=== PATIENT | female | born 1995 | race Two or more races ===

== ENCOUNTER 2019-10-09 20:24 | Inpatient (IN) | payer MEDICAID ==
[~2019-10-09] VITALS: Ht 152.4 cm; Wt 78.7 kg
[2019-10-10] MEDS ORDERED: FAMOTIDINE 20MG/2ML VIAL IV STA (00:09)
[2019-10-10] MEDS ORDERED: MAGNESIUM/ALUMINUM HYDROXIDE/SIMETHICONE 30ML UDC PO STA (00:09)
[2019-10-10] MEDS ORDERED: SODIUM CHLORIDE 0.9% 1,000 ML IV ONE ×2 (00:09)
[2019-10-10] MEDS ORDERED: MORPHINE SULFATE 4 MG/ML CPJ (NOT FOR IM USE) IV STA (00:09)
[2019-10-10] MEDS ORDERED: ONDANSETRON HCL 4MG/2ML INJ IV STA (00:09)
[2019-10-10 00:43] LABS: BG BASE EXCESS -4.7 mmol/L (-2.0-2.0); BG CARBOXYHEMOGLOBIN 0.4 % (0.5-1.5); BG DEOXYHEMOGLOBIN 1.9 % (0.0-5.0); BG FRACTION INSPIRED OXYGEN 21; BG HCO3 ACT 16.1 mmol/L (22.0-26.0); BG METHEMOGLOBIN 0.1 % (0.0-1.5); BG OXYGEN SATURATION 98.1 % (92.0-98.5); BG OXYHEMOGLOBIN 97.6 % (94.0-97.0); BG PCO2 21.4 mmHg (35.0-45.0); BG PH 7.494 (7.350-7.450); BG PO2 101.8 mmHg (75.0-100.0); BG SAMPLE SITE RIGHT RADIAL; BG VENT MODE ROOM AIR
[2019-10-10 00:51] LABS: CLARITY URINE TURBID (CLEAR); COLOR URINE RED (YELLOW); KETONES URINE 4+ (NEGATIVE); LEUKOCYTE ESTERASE URINE 1+ (NEGATIVE); NITRITE URINE NEGATIVE (NEGATIVE); OCCULT BLOOD URINE 3+ (NEGATIVE); PROTEIN URINE 2+ (NEGATIVE); SPECIFIC GRAVITY URINE 1.047 (1.005-1.030); UROBILINOGEN URINE 0.2 E.U./dL (0.2-1.0)
[2019-10-10 00:52] LABS: HEMATOCRIT. 43.5 % (36.0-48.0); MEAN CORPUSCULAR HEMOGLOBIN 31.8 pg (28.0-32.0); MEAN CORPUSCULAR VOLUME 91.9 fL (81.0-99.0); MEAN PLATELET VOLUME 8.4 fl (7.4-10.4); PLATELET 283 x1000/uL (130-400); RED BLOOD CELL COUNT 4.73 mill/uL (4.2-5.4); RED CELL DISTRIBUTION WIDTH 12.7 % (11.6-14.6)
[2019-10-10 00:59] LABS: CHLORIDE 98 mEq/L (98-107)
[2019-10-10 01:07] LABS: BETA HYDROXYBUTYRATE 3.2 mMol/L (0.0-0.3)
[2019-10-10 01:49] LABS: PLATELET ESTIMATE NORMAL
[2019-10-10] MEDS ORDERED: METOCLOPRAMIDE HCL 10MG/2ML VIAL IV ONE ×2 (03:30→09:30)
[2019-10-10] MEDS ORDERED: MORPHINE SULFATE 4 MG/ML CPJ (NOT FOR IM USE) IV ONE (07:00)
[2019-10-10] MEDS ORDERED: ONDANSETRON HCL 4MG/2ML INJ IV ONE (07:00)
[2019-10-10] MEDS ORDERED: INSULIN LISPRO 100 UNITS/ML SUBCUT ONE (08:25)
[2019-10-10] MEDS ORDERED: DEXTROSE 50% WATER 50ML SYRINGE IV PRN (10:00)
[2019-10-10] MEDS ORDERED: CEFTRIAXONE 1 G PREMIX 50 ML IV SCH (11:00)
[2019-10-10] MEDS: METOCLOPRAMIDE HCL 10MG/2ML VIAL IV SCH ×3 (12:20→12:30)
[2019-10-10] MEDS: BLOOD SUGAR DIAGNOSTIC STRIP TEST SCH ×3 (12:33→21:00)
[2019-10-10] MEDS: INSULIN LISPRO 100 UNITS/ML SUBCUT SCH ×3 (12:35→23:01)
[2019-10-10 12:53] LABS: *BARBITURATES SCREEN URINE NEGATIVE (NEGATIVE); *BENZODIAZEPINES SCREEN URINE NEGATIVE (NEGATIVE); *COCAINE SCREEN URINE NEGATIVE (NEGATIVE); METHADONE URINE SCREEN NEGATIVE (NEGATIVE)
[2019-10-10 13:05] LABS: CANNABINOID URINE SCREEN PRESUMTIVE POSITIVE (NEGATIVE); OPIATES URINE SCREEN PRESUMTIVE POSITIVE (NEGATIVE)
[2019-10-10] MEDS: ONDANSETRON HCL 4MG/2ML INJ IV PRN ×2 (13:06→22:59)
[2019-10-10 13:13] LABS: *AMPHETAMINES SCREEN URINE NEGATIVE (NEGATIVE); PHENCYCLIDINE URINE SCREEN NEGATIVE (NEGATIVE)
[2019-10-10] MEDS ORDERED: MORPHINE SULFATE 2 MG/ML CPJ (NOT FOR IM USE) IV NR (14:30)
[2019-10-10] MEDS: PANTOPRAZOLE SODIUM 40 MG/VIAL IV SCH (14:34)
[2019-10-10] MEDS: MAGNESIUM/ALUMINUM HYDROXIDE/SIMETHICONE 30ML UDC PO PRN (15:29)
[2019-10-10] MEDS ORDERED: MORPHINE SULFATE 2 MG/ML CPJ (NOT FOR IM USE) IV ONE (16:45)
[2019-10-10 22:30] VITALS: BP 117/81
[2019-10-10] MEDS: ACETAMINOPHEN 325MG TABLET PO PRN (22:54)
[2019-10-10] MEDS: MORPHINE SULFATE 2 MG/ML CPJ (NOT FOR IM USE) IV PRN (23:52)
[2019-10-11] VITALS: BP 124/87
[2019-10-11] MEDS ORDERED: INSU100I28 SQ (00:14)
[2019-10-11] MEDS ORDERED: METF500S7 PO (00:14)
[2019-10-11] MEDS ORDERED: PROT20 PO (00:14)
[2019-10-11] MEDS: ZOLPIDEM TARTRATE 5MG TABLET PO PRN ×2 (01:29→21:06)
[2019-10-11 04:00] VITALS: BP 123/79
[2019-10-11] MEDS: MORPHINE SULFATE 2 MG/ML CPJ (NOT FOR IM USE) IV PRN (05:08)
[2019-10-11] MEDS: METOCLOPRAMIDE HCL 10MG/2ML VIAL IV SCH ×4 (05:08→23:33)
[2019-10-11] MEDS: INSULIN LISPRO 100 UNITS/ML SUBCUT SCH ×4 (06:30→20:10)
[2019-10-11] MEDS: BLOOD SUGAR DIAGNOSTIC STRIP TEST SCH ×4 (06:30→20:24)
[2019-10-11 08:00] VITALS: BP 144/98
[2019-10-11] MEDS: PANTOPRAZOLE SODIUM 40 MG/VIAL IV SCH (08:04)
[2019-10-11 08:18] LABS: BASOPHILS % 0.7 % (0.0-2.0); HEMOGLOBIN. 13.3 g/dL (12.0-16.0); LYMPHOCYTES % 17.8 % (20.0-50.0); MEAN CORPUSCULAR HEMOGLOBIN 31.6 pg (28.0-32.0); MEAN CORPUSCULAR VOLUME 90.3 fL (81.0-99.0); MEAN PLATELET VOLUME 8.6 fl (7.4-10.4); MONOCYTES % 5.3 % (2.0-8.0); NEUTROPHILS % 76.2 % (40.0-76.0); PLATELET 245 x1000/uL (130-400); RED BLOOD CELL COUNT 4.21 mill/uL (4.2-5.4); RED CELL DISTRIBUTION WIDTH 12.3 % (11.6-14.6)
[2019-10-11 08:37] LABS: CHLORIDE 102 mEq/L (98-107)
[2019-10-11] MEDS ORDERED: POTASSIUM CHLORIDE 20MEQ TABLET SR PO NR (11:00)
[2019-10-11] MEDS ORDERED: HYDROCODONE/ACETAMINOPHEN 5/325MG TABLET PO PRN (11:30)
[2019-10-11 12:00] VITALS: BP 126/90
[2019-10-11] MEDS: CEFTRIAXONE 1 G PREMIX 50 ML IV SCH (12:19)
[2019-10-11 16:00] VITALS: BP 133/89
[2019-10-11] MEDS: MAGNESIUM/ALUMINUM HYDROXIDE/SIMETHICONE 30ML UDC PO PRN (19:58)
[2019-10-11] MEDS: ACETAMINOPHEN 325MG TABLET PO PRN (19:58)
[2019-10-11 20:00] VITALS: BP 105/72
[2019-10-11] MEDS ORDERED: INSULIN GLARGINE UD 100 UNITS/ML SYR SUBCUT SCH (22:00)
[2019-10-12] VITALS: BP 121/75
[2019-10-12 04:00] VITALS: BP 121/86
[2019-10-12] MEDS: MAGNESIUM/ALUMINUM HYDROXIDE/SIMETHICONE 30ML UDC PO PRN (05:21)
[2019-10-12] MEDS: METOCLOPRAMIDE HCL 10MG/2ML VIAL IV SCH ×2 (05:21→11:29)
[2019-10-12] MEDS: BLOOD SUGAR DIAGNOSTIC STRIP TEST SCH ×2 (07:25→13:05)
[2019-10-12 08:06] LABS: BASOPHILS % 0.7 % (0.0-2.0); EOSINOPHILS % 0.1 % (0.0-5.0); HEMATOCRIT. 38.9 % (36.0-48.0); LYMPHOCYTES % 37.6 % (20.0-50.0); MEAN CORPUSCULAR HEMOGLOBIN 32.1 pg (28.0-32.0); MEAN CORPUSCULAR VOLUME 89.3 fL (81.0-99.0); MEAN PLATELET VOLUME 8.3 fl (7.4-10.4); MONOCYTES % 7.9 % (2.0-8.0); NEUTROPHILS % 53.7 % (40.0-76.0); PLATELET 265 x1000/uL (130-400); RED BLOOD CELL COUNT 4.36 mill/uL (4.2-5.4); RED CELL DISTRIBUTION WIDTH 12.8 % (11.6-14.6)
[2019-10-12 08:13] LABS: CHLORIDE 102 mEq/L (98-107)
[2019-10-12] MEDS: PANTOPRAZOLE SODIUM 40 MG/VIAL IV SCH (08:19)
[2019-10-12] MEDS: INSULIN LISPRO 100 UNITS/ML SUBCUT SCH ×2 (08:19→13:04)
[2019-10-12] MEDS: ONDANSETRON HCL 4MG/2ML INJ IV PRN (08:58)
[2019-10-12] MEDS ORDERED: ALPRAZOLAM 0.25 MG TABLET PO NR (10:30)
[2019-10-12] MEDS ORDERED: POTASSIUM CHLORIDE 20MEQ TABLET SR PO NR (10:30)
[2019-10-12] MEDS: CEFTRIAXONE 1 G PREMIX 50 ML IV SCH (11:36)
[2019-10-12 12:00] VITALS: BP_SYST 114; BP_SYST 138; BP_DIAS 82; BP_DIAS 85
[2019-10-12] MEDS ORDERED: PROT20 PO (12:31)
[2019-10-12] MEDS ORDERED: METO10TA3 MT (12:31)
[2019-10-12 14:05] VITALS: BP 114/82
[2019-10-12] MEDS ORDERED: INSULIN GLARGINE UD 100 UNITS/ML SYR SUBCUT SCH (22:00)
== END 2019-10-12 14:28 | disposition home or self-care (01) | DRG 48 ==
LOC: ER 20:24 → EDBEDREQSVC 10-10 14:29 → ENRESERV 10-10 20:42 → 6EST 10-10 22:44
PROVIDERS: ADMIT Internal Medicine; ATTEND Emergency Medicine
DX: E11.43 Type 2 diabetes mellitus with diabetic autonomic (poly)neuropathy (principal); E87.2 Acidosis; E11.65 Type 2 diabetes mellitus with hyperglycemia; E87.6 Hypokalemia; Z79.4 Long term (current) use of insulin; F12.90 Cannabis use, unspecified, uncomplicated; K31.84 Gastroparesis; N39.0 Urinary tract infection, site not specified; K21.9 Gastro-esophageal reflux disease without esophagitis; Z88.8 Allergy status to other drugs, medicaments and biological substances; Z88.6 Allergy status to analgesic agent
CPT/HCPCS: 36415; 36600; 80048; 80053; 80305; 81003; 81025; 82010; 82375; 82805; 82962; 83036; 83605; 85025; 87106; 99285; C9113; J0696; J1815; J2270; J2405; J2765; J3490; J7030

== ENCOUNTER 2019-11-03 08:26 | Emergency (ER) | payer MEDICAID ==
[~2019-11-03] VITALS: Ht 157.5 cm; Wt 76.0 kg
[~2019-11-03 08:26] MED LIST: INSU100I28 SQ; METF500S7 PO; METO10TA3 MT; PROT20 PO
[2019-11-03] MEDS ORDERED: FAMOTIDINE 20MG/2ML VIAL IV STA (08:58)
[2019-11-03] MEDS ORDERED: SODIUM CHLORIDE 0.9% 1,000 ML IV ONE (08:58)
[2019-11-03] MEDS ORDERED: ONDANSETRON HCL 4MG/2ML INJ IV STA (08:58)
[2019-11-03] MEDS ORDERED: MORPHINE SULFATE 4 MG/ML CPJ (NOT FOR IM USE) IV STA (08:58)
[2019-11-03 09:38] LABS: CLARITY URINE TURBID (CLEAR); COLOR URINE DARK YELLOW (YELLOW); KETONES URINE 1+ (NEGATIVE); LEUKOCYTE ESTERASE URINE 2+ (NEGATIVE); NITRITE URINE NEGATIVE (NEGATIVE); OCCULT BLOOD URINE NEGATIVE (NEGATIVE); PROTEIN URINE 2+ (NEGATIVE); SPECIFIC GRAVITY URINE 1.033 (1.005-1.030)
[2019-11-03 09:39] LABS: BASOPHILS % 0.4 % (0.0-2.0); EOSINOPHILS % 0.3 % (0.0-5.0); HEMATOCRIT. 40.6 % (36.0-48.0); HEMOGLOBIN. 14.5 g/dL (12.0-16.0); LYMPHOCYTES % 21.7 % (20.0-50.0); MEAN CORPUSCULAR VOLUME 89.5 fL (81.0-99.0); MEAN PLATELET VOLUME 8.1 fl (7.4-10.4); MONOCYTES % 5.7 % (2.0-8.0); NEUTROPHILS % 71.9 % (40.0-76.0); PLATELET 284 x1000/uL (130-400); RED BLOOD CELL COUNT 4.54 mill/uL (4.2-5.4); RED CELL DISTRIBUTION WIDTH 12.7 % (11.6-14.6)
[2019-11-03 09:46] LABS: CHLORIDE 102 mEq/L (98-107)
[2019-11-03 09:52] LABS: PROTHROMBIN TIME 10.4 sec (9.6-11.0)
[2019-11-03 09:59] LABS: HCG SCREEN NEGATIVE
[2019-11-03] MEDS ORDERED: CEFTRIAXONE 1 G PREMIX 50 ML IV ONE (10:00)
[2019-11-03 10:08] LABS: BG CARBOXYHEMOGLOBIN 0.6 % (0.5-1.5); BG DEOXYHEMOGLOBIN 3.4 % (0.0-5.0); BG FRACTION INSPIRED OXYGEN 21; BG HCO3 ACT 24.4 mmol/L (22.0-26.0); BG METHEMOGLOBIN 0.3 % (0.0-1.5); BG OXYGEN SATURATION 96.6 % (92.0-98.5); BG OXYHEMOGLOBIN 95.7 % (94.0-97.0); BG PCO2 43.5 mmHg (35.0-45.0); BG PH 7.367 (7.350-7.450); BG PO2 84.8 mmHg (75.0-100.0); BG SAMPLE SITE RIGHT BRACHIAL; BG TOTAL HEMOGLOBIN 14.1 g/dL (12.0-18.0); BG VENT MODE ROOM AIR
[2019-11-03] MEDS ORDERED: POTASSIUM CHLORIDE 20MEQ TABLET SR PO NR (10:30)
[2019-11-03] MEDS ORDERED: MORPHINE SULFATE 4 MG/ML CPJ (NOT FOR IM USE) IV ONE (11:30)
[2019-11-03 12:16] VITALS: BP 114/72
== END 2019-11-03 12:20 | disposition home or self-care (01) ==
LOC: ER 08:37
DX: E10.43 Type 1 diabetes mellitus with diabetic autonomic (poly)neuropathy (principal); K31.84 Gastroparesis; Z79.4 Long term (current) use of insulin; N39.0 Urinary tract infection, site not specified; Z88.6 Allergy status to analgesic agent
CPT/HCPCS: 36415; 36600; 76705; 80053; 81003; 81025; 82010; 82375; 82805; 82962; 83690; 84703; 85025; 85610; 87086; 96365; 96375; 96376; 99284; J0696; J2270; J2405; J3490; J7030

== ENCOUNTER 2019-11-03 15:54 | Emergency (ER) | payer MEDICAID ==
[~2019-11-03] VITALS: Ht 157.5 cm; Wt 7.0 kg
[2019-11-03] MEDS ORDERED: FAMOTIDINE 20MG/2ML VIAL IV STA (16:10)
[2019-11-03] MEDS ORDERED: SODIUM CHLORIDE 0.9% 1,000 ML IV ONE (16:10)
[2019-11-03] MEDS ORDERED: ONDANSETRON HCL 4MG/2ML INJ IV STA (16:10)
[2019-11-03] MEDS ORDERED: LORAZEPAM 2MG/ML CPJ IV ONE (16:15)
[2019-11-03 16:44] LABS: BASOPHILS % 0.5 % (0.0-2.0); HEMATOCRIT. 37.6 % (36.0-48.0); HEMOGLOBIN. 13.6 g/dL (12.0-16.0); LYMPHOCYTES % 14.2 % (20.0-50.0); MEAN CORPUSCULAR HEMOGLOBIN 32.3 pg (28.0-32.0); MEAN CORPUSCULAR VOLUME 89.8 fL (81.0-99.0); MEAN PLATELET VOLUME 8.1 fl (7.4-10.4); MONOCYTES % 3.1 % (2.0-8.0); NEUTROPHILS % 82.2 % (40.0-76.0); PLATELET 270 x1000/uL (130-400); RED BLOOD CELL COUNT 4.19 mill/uL (4.2-5.4)
[2019-11-03 16:51] LABS: CHLORIDE 104 mEq/L (98-107)
[2019-11-03 16:54] LABS: CLARITY URINE CLEAR (CLEAR); COLOR URINE YELLOW (YELLOW); KETONES URINE 4+ (NEGATIVE); LEUKOCYTE ESTERASE URINE TRACE (NEGATIVE); NITRITE URINE NEGATIVE (NEGATIVE); OCCULT BLOOD URINE NEGATIVE (NEGATIVE); PROTEIN URINE NEGATIVE (NEGATIVE); SPECIFIC GRAVITY URINE 1.033 (1.005-1.030)
[2019-11-03 16:55] LABS: ETHANOL BLOOD < 10 mg/dL
[2019-11-03 16:56] LABS: PROTHROMBIN TIME 10.8 sec (9.6-11.0)
[2019-11-03 17:07] LABS: HCG SCREEN NEGATIVE
[2019-11-03 17:08] LABS: *AMPHETAMINES SCREEN URINE NEGATIVE (NEGATIVE); *BARBITURATES SCREEN URINE NEGATIVE (NEGATIVE); METHADONE URINE SCREEN NEGATIVE (NEGATIVE); PHENCYCLIDINE URINE SCREEN NEGATIVE (NEGATIVE)
[2019-11-03 17:09] LABS: *BENZODIAZEPINES SCREEN URINE NEGATIVE (NEGATIVE); *COCAINE SCREEN URINE NEGATIVE (NEGATIVE)
[2019-11-03 17:11] LABS: CANNABINOID URINE SCREEN PRESUMTIVE POSITIVE (NEGATIVE); OPIATES URINE SCREEN PRESUMTIVE POSITIVE (NEGATIVE)
[2019-11-03] MEDS ORDERED: MAGNESIUM/ALUMINUM HYDROXIDE/SIMETHICONE 30ML UDC PO ONE (18:45)
[2019-11-03 19:44] VITALS: BP 138/94
== END 2019-11-03 19:44 | disposition home or self-care (01) ==
LOC: ER 16:00
DX: R10.13 Epigastric pain (principal); E86.0 Dehydration; E11.65 Type 2 diabetes mellitus with hyperglycemia; E11.43 Type 2 diabetes mellitus with diabetic autonomic (poly)neuropathy; K31.84 Gastroparesis; F12.10 Cannabis abuse, uncomplicated; Z79.4 Long term (current) use of insulin; Z88.6 Allergy status to analgesic agent
CPT/HCPCS: 36415; 80053; 80305; 80320; 81003; 81025; 83690; 84703; 85025; 85610; 87086; 96361; 96374; 96375; 99284; J2060; J2405; J3490; J7030; G0480